=== PATIENT | female | born 2000 | race Caucasian/White ===

== ENCOUNTER 2020-03-11 14:50 | Outpatient (REF) | payer MEDICAID, SELFPAY | END 2020-03-11 14:51 | disposition home or self-care (01) | LOC: HO.LAB 14:50 | PROVIDERS: PCP Internal Medicine; Visit Provider Internal Medicine | DX: Z20.822 Contact with and (suspected) exposure to COVID-19 (principal) | CPT/HCPCS: 36415; C9803; U0003 ==

== ENCOUNTER → 2020-07-17 14:18 | Outpatient (BNVA) | payer MEDICAID, SELFPAY | PROVIDERS: PCP Internal Medicine; Referring Provider Internal Medicine; Visit Provider Advanced Practice Midwife ==

== ENCOUNTER → 2020-07-23 13:03 | Outpatient (BNVA) | payer MEDICAID, SELFPAY | PROVIDERS: PCP Internal Medicine; Visit Provider Advanced Practice Midwife | DX: Z30.42 Encounter for surveillance of injectable contraceptive (principal) | CPT/HCPCS: 96372; 99211 ==

== ENCOUNTER → 2020-10-09 12:57 | Outpatient (BNVA) | payer MEDICAID, SELFPAY | PROVIDERS: PCP Internal Medicine; Visit Provider Advanced Practice Midwife | DX: Z30.42 Encounter for surveillance of injectable contraceptive (principal) | CPT/HCPCS: 96372; 99211 ==

== ENCOUNTER 2021-07-03 22:24 | Emergency (ER) | payer MEDICAID, SELFPAY ==
[2021-07-03 23:03] VITALS: BP 117/77; PULSE 98; RESP 17; TEMP 37.1; O2SAT 99; BMI 23.0
[2021-07-03 23:11] LABS: Glucose, Whole Blood 86 mg/dL (60-115)
[2021-07-03 23:16] LABS: MANUAL DIFF FLAG NO
[2021-07-03 23:19] LABS: Basophils Absolute Auto 0.1 X10*3/uL (0.0-0.2); Basophils Percent Auto 0.4 % (0-2); Eosinophils Percent Auto 0.3 % (0-4); Hematocrit 35.7 % (37.0-47.0); Hemoglobin 12.2 g/dl (12.0-16.0); Imm Gran Abs Auto 0.03 X10*3/uL (0.00-0.03); Imm Gran Pct Auto 0.3 % (0.0-0.4); Lymphocytes Absolute Auto 2.2 X10*3/uL (1.2-4.9); Lymphocytes Percent Auto 18.7 % (20-40); Mean Corpuscular HGB Conc 34.2 g/dl (31.0-35.0); Mean Corpuscular Hemoglobin 29.4 pg (27.0-33.0); Mean Platelet Volume 9.1 fL (9.4-12.3); Monocytes Absolute Auto 0.8 X10*3/uL (0.1-1.2); Neutrophils Absolute Auto 8.6 x10*3/uL (2.0-8.3); Neutrophils Percent Auto 73.3 % (45-73); Platelet Count 340 X10*3/uL (160-400); Red Blood Count 4.15 X10*6/uL (4.20-5.50); Red Cell Distribution Width 11.6 % (11.0-16.0); White Blood Count 11.7 X10*3/uL (4.8-10.8)
[2021-07-03 23:35] LABS: Alanine Aminotransferase 11 U/L (0-31); Albumin Level 4.2 g/dL (3.5-5.0); Alkaline Phosphatase 39 U/L (39-117); Anion Gap 12 (12-20); Aspartate Amino Transferase 14 U/L (5-31); Bilirubin Total 0.5 mg/dL (0.0-1.0); Blood Urea Nitrogen 6 mg/dL (9-16); Calcium 9.6 mg/dL (8.4-10.2); Carbon Dioxide 23 mmol/L (22-29); Chloride 103 mmol/L (96-108); Creatinine Clr Calc Pharmacy 104.7; Estimated Glomerular Filt Rate > 60; Glucose Random 86 mg/dL (60-115); Potassium 4.1 mmol/L (3.3-5.1); Sodium 134 mmol/L (135-145); Total Protein 7.2 g/dL (6.5-8.0)
--- NOTE | 2021-07-04 00:38 | ED_ITS ---
HPI - Nausea/Vomiting/Diarrhea General Chief complaint: Nausea/Vomiting/Diarrhea Stated complaint: Nausea/Vomiting/Preg Time Seen by Provider: 07/04/21 00:27 Source: patient Mode of arrival: ambulatory Limitations: no limitations History of Present Illness HPI Narrative: Patient presents emergency department for evaluation nausea and vomiting with intermittent lightheadedness over the past 3 days. She reports she is currently about 7 weeks . Last menstrual cycle was 04/29/2021 expected due date 01/24/2022, she is followed by a [facility]. Reports history of nausea and vomiting prior but this feels worse. She has been tolerating oral liquids, but having difficulty keeping food down. Denies any known sick contacts. Denies fevers, chills, chest pain palpitations, cough, shortness of b reath, difficulty breathing, abdominal pain, dysuria, urinary frequency/urgency, abnormal vaginal discharge, vaginal bleeding, back pain, flank pain. MD elicited complaint: nausea and vomiting Onset (ago): day(s) Description of vomiting: food contents, watery and bilious Associated nausea: Yes Associated abdominal pain: No Related Data Previous Rx's Medication Instructions Recorded pyridoxine (vitamin B6) 25 mg 25 mg PO Q8H PRN #10 tab 07/04/21 tablet Allergies Allergy/AdvReac Type Severity Reaction Status Date / Time No Known Allergies Allergy Verified 07/17/20 14:19 Review of Systems Review of Systems: Constitutional: No weight loss, fever, chills, weakness or fatigue. Skin: No rash or itching. Cardiovascular: No chest pain, chest pressure or chest discomfort. No palpitations or pedal edema. Respiratory: No shortness of breath, cough or sputum production. Gastrointestinal: Positive nausea. Positive vomiting. No diarrhea. No abdominal pain or blood in stool. Genitourinary: No burning micturition. No urinary frequency or incontinence. Musculoskeletal: No muscle pain, back pain, joint pain or stiffness. Psychiatric: No depression or anxiety. Yes all other systems are reviewed and are negative Gastrointestinal: Gastrointestinal: Reports nausea PMFSH Past Medical History Attestation statement: The following information was validated with the patient. Source: old records reviewed Medical History No known health problems Social History Social History (Reviewed 07/04/21 @ 02:03 by KENIA Alcala Alcohol intake: never Patient Tobacco Use Status: Never used Tobacco Advance Directives: No Advance Directives Information Provided: No Sexual orientation: Straight/Heterosexual Gender identity: Female Physical Exam Vital Signs: Vital Signs: Last Vital Signs Temp 98.8 F 07/03/21 23:03 Pulse 85 07/04/21 00:49 Resp 17 07/03/21 23:03 BP 101/63 07/04/21 00:49 Pulse Ox 99 07/03/21 23:03 BMI result Body Mass Index 23.0 Vital signs have been reviewed as normal and appeared to be correct. Blood pressure normal.? Heart rate normal.? Respiration rate normal. Temperature normal.? Oxygen saturation normal. Appearance: Alert.?Oriented to person, place and time. No acute dist ress.?Normal affect. Eyes: Pupils equal, round and reactive to light.? EOMI. No nystagmus. ENT: Pharynx normal.?? Neck: Normal inspection.? Neck supple.?? CVS: Heart sounds normal. Normal heart rate and rhythm.? Pulses normal.?? Respiratory: No respiratory distress.? Lung sounds clear to auscultation bilaterally?? Abdomen: Soft and non-tender. Normoactive bowel sounds. ?? Skin: Skin warm and dry.? Normal skin color.?? Extremities: No lower extremity edema.? Neuro: Moves all extremities spontaneously. Sensation intact bilaterally. No motor deficits Ambulates with normal steady gait. Course Course Course Narrative: Patient is a 20-year-old female no significant past medical history presenting to emergency department for evaluation of nausea and vomiting over the past 3 days with current . Reports she feels lightheaded with any rapid position change, orthostatic vital signs are normal. CBC and CMP are overall normal. Declined influenza/COVID-19 testing. She is overall well-florencio earing, hemodynamically stable. Will obtain urinalysis to evaluate for infection. Patient received 1 L normal saline IV, Reglan 10 mg IV, pyridoxine 25 mg p.o.. Reevaluation(s) Reevaluation #1: Patient reports significant improvement in her nausea, provided with gingerale and crackers and tolerated well without vomiting. Urinalysis is pending at this time, patient signed out to Dr. Stern pending results of urinalysis Discussed with patient plan of care for discharge home, will provide new prescription for prior toxin 25 mg every 8 hours as needed for nausea, advised to push fluids, small frequent meals, follow-up with OBGYN, discussed reasons to return back to the emergency department, all questions were answered. Time: 02:09 [facility] - Nausea/Vomiting/Diarrhea Lab Data Result diagrams: 07/03/21 23:10 07/03/21 23:10 Labs: Lab Results 07/03/21 07/03/21 07/03/21 Range/Units 23:08 23:10 23:10 WBC 11.7 H (4.8-10.8) X10*3/uL RBC 4.15 L (4.20-5.50) X10*6/uL Hgb 12.2 (12.0-16.0) g/dl Hct 35.7 L (37.0-47.0) % MCV 86.0 (80.0-98.0) fL MCH 29.4 (27.0-33.0) pg MCHC 34.2 (31.0-35.0) g/dl RDW 11.6 (11.0-16.0) % Plt Count 340 (160-400) X10*3/uL MPV 9.1 L (9.4-12.3) fL Immature Gran % (Auto) 0.3 (0.0-0.4) % Neut % (Auto) 73.3 H (45-73) % Lymph % (Auto) 18.7 L (20-40) % [place] % (Auto) 7.0 (2-11) % Eos % (Auto) 0.3 (0-4) % Baso % (Auto) 0.4 (0-2) % Lymph # (Auto) 2.2 (1.2-4.9) X10*3/uL [place] # (Auto) 0.8 (0.1-1.2) X10*3/uL Eos # (Auto) 0.0 (0.0-0.4) X10*3/uL Baso # (Auto) 0.1 (0.0-0.2) X10*3/uL Abs Immat Gran (auto) 0.03 (0.00-0.03) X10*3/uL Absolute Neuts (auto) 8.6 H (2.0-8.3) x10*3/uL Absolute Nucleated RBC 0.000 (0.0-0.012) X10*3/uL Nucleated RBC % (auto) 0.0 (0.0-0.2) /100WBC Sodium 134 L (135-145) mmol/L Potassium 4.1 (3.3-5.1) mmol/L Chloride 103 (96-108) mmol/L Carbon Dioxide 23 (22-29) mmol/L Anion Gap 12 (12-20) BUN 6 L (9-16) mg/dL Creatinine 0.61 (0.5-1.4) mg/dL Estim Creat Clear Calc 104.7 Estimated GFR > 60 POC Glucose 86 (60-115) mg/dL Random Glucose 86 (60-115) mg/dL Calcium 9.6 (8.4-10.2) mg/dL Total Bilirubin 0.5 (0.0-1.0) mg/dL AST 14 (5-31) U/L ALT 11 (0-31) U/L Alkaline Phosphatase 39 (39-117) U/L Total Protein 7.2 (6.5-8.0) g/dL Albumin 4.2 (3.5-5.0) g/dL Beta HCG, Quant 36673 mIU/mL Discharge Plan Discharge Clinical Impression: Nausea and vomiting in Patient Disposition: Home, Self-Care Additional Instructions: Be sure to rest, stay well hydrated, eat small frequent meals. You have been given a new prescription for pyridoxine, you may take this every 8 hours as needed for nausea. Please contact your OBGYN to schedule follow-up visit within 1 week. You can return to the emergency department any new or worsening symptoms or concerns. Prescriptions: New pyridoxine (vitamin B6) 25 mg tablet 25 mg PO Q8H PRN (Reason: nausea and vomiting) Qty: 10 0RF
[2021-07-04 00:48] VITALS: BP 97/55; PULSE 64
[2021-07-04 00:49] VITALS: BP 101/63; BP 96/67; PULSE 70; PULSE 85
[2021-07-04] MEDS: Metoclopramide HCl 10 MG/2 ML VIAL IVPUSH (01:08)
[2021-07-04] MEDS: 0.9 % Sodium Chloride 1,000 ML 999 ML IV (01:09)
[2021-07-04] MEDS: Pyridoxine HCl (Vitamin B6) 50 MG TABLET 25 MG PO (02:12)
[2021-07-04 02:19] LABS: Appearance Urine HAZY; Color Urine YELLOW; Glucose Urine UA NEG (NEG); Leukocyte Esterase Urine NEG (NEG); Nitrite Urine NEG (NEG); PH 6.5 (5.0-8.0); Urine Blood NEG (NEG); Urine Ketones >=80 MG/DL (NEG); Urine Protein NEG (NEG-TRACE)
== END 2021-07-04 03:02 | disposition home or self-care (01) ==
PROVIDERS: Emergency Medicine; Nurse Practitioner Family; Emergency Provider Emergency Medicine; PCP Internal Medicine
DX: R11.2 Nausea with vomiting, unspecified (principal); R42 Dizziness and giddiness; Z79.899 Other long term (current) drug therapy
CPT/HCPCS: 36415; 80053; 81003; 82947; 84702; 85025; 96361; 96374; 99284; J2765

== ENCOUNTER → 2022-06-09 14:50 | Outpatient (BNVA) | payer SELFPAY | PROVIDERS: PCP Internal Medicine; Visit Provider Physician Assistant Medical | DX: Z02.1 Encounter for pre-employment examination (principal) ==